=== PATIENT | male | born 1940 | race Caucasian/White ===

== ENCOUNTER 2017-09-09 10:03 | Emergency (ER) | payer OTHER, MEDICARE | END 2017-09-09 16:37 | disposition home or self-care (01) | LOC: E/R 10:03 | DX: R30.0 Dysuria (principal); R40.2142 Coma scale, eyes open, spontaneous, at arrival to emergency department; R40.2252 Coma scale, best verbal response, oriented, at arrival to emergency department; R40.2362 Coma scale, best motor response, obeys commands, at arrival to emergency department | CPT/HCPCS: 99283 ==

== ENCOUNTER 2018-08-04 11:13 | Emergency (ER) | payer OTHER, MEDICARE | END 2018-08-04 13:00 | disposition home or self-care (01) | LOC: E/R 11:13 | DX: R33.9 Retention of urine, unspecified (principal) | CPT/HCPCS: 51702; 99283-25 ==